=== PATIENT | female | born 1995 | race Caucasian/White ===

== ENCOUNTER 2024-11-25 15:32 | Inpatient (IN) | payer OTHER ==
[~2024-11-25] VITALS: Ht 165.1 cm; Wt 105.9 kg
[~2024-11-25 15:32] MED LIST: BIRTH CONTROL MEDS; TOPAMAX25 MG PO; ZOLOFT25 MG PO
[2024-11-25] MEDS: ONDANSETRON HCL INJ 2MG/ML 2ML 2 MG/ML VIAL IV STA (16:32)
[2024-11-25] MEDS: KETOROLAC TROMETHAMINE 30 MG/ML VIAL IV STA (16:45)
[2024-11-25] MEDS: FAMOTIDINE 20 MG/2 ML VIAL IV STA (17:05)
[2024-11-25] MEDS: Morphine 4mg INJECTION 4 MG/ML INJ IV ONE (17:05)
[2024-11-25 18:26] VITALS: PULSE 55; RESP 18; TEMP 97.6
[2024-11-25] MEDS: SODIUM CHLORIDE 0.9% 1000ML 1,000 ML IV SCH (18:34)
[2024-11-25 20:28] VITALS: BP 129/77; PULSE 57; RESP 16; TEMP 97.5; O2SAT 100
[2024-11-25] MEDS: Morphine 4mg INJECTION 4 MG/ML INJ IV PRN (21:14)
[2024-11-25 23:08] VITALS: BP 129/77; PULSE 57; RESP 16; TEMP 97.5; O2SAT 100
[2024-11-25 23:09] VITALS: BP 129/77; PULSE 57; RESP 16; TEMP 97.5; O2SAT 100
[2024-11-25 23:14] VITALS: BP 129/77; PULSE 57; RESP 16; TEMP 97.5; O2SAT 100
[2024-11-25] MEDS ORDERED: SYNTHROID125 MCG PO (23:25)
[2024-11-25] MEDS ORDERED: OMEPRAZOLE40 MG PO (23:25)
[2024-11-25] MEDS ORDERED: FAMOTIDINE20 MG PO (23:25)
[2024-11-25 23:30] VITALS: BP 129/77; PULSE 57; RESP 16; TEMP 97.5; O2SAT 100
[2024-11-26] VITALS (9 sets, daily range): BP systolic 131–161; BP diastolic 95–106; PULSE 70–125; RESP 17–20; TEMP 98.1–100.7; O2SAT 96–99
[2024-11-26 08:48] LABS: ALBUMIN 3.5 g/dL (3.5-5.0); BILIRUBIN,DIRECT 1.9 mg/dL (0.0-0.5); BILIRUBIN,TOTAL 2.5 mg/dL (0.2-1.2); TOTAL PROTEIN 9.1 g/dL (6.5-8.1)
[2024-11-26] MEDS: TRAMADOL HCL 50 MG TAB PO PRN (11:39)
[2024-11-26] MEDS: ACETAMINOPHEN 325 MG TAB PO PRN (12:53)
[2024-11-26] MEDS ORDERED: METOPROLOL TARTRATE INJ 1 MG/ML VIAL IV PRN (13:15)
[2024-11-26] MEDS ORDERED: SIMETHICONE 80 MG CHEW PO PRN (13:15)
[2024-11-26] MEDS ORDERED: ALBUTEROL/IPRATROPIUM 3 ML NEB NEB PRN (13:15)
[2024-11-26 13:34] LABS: BASOPHILS % 0.2 % (0.0-1.0); HEMOGLOBIN 13.6 g/dL (12.0-16.0); LYMPHOCYTES # (AUTO) 0.6 (1.0-3.2); LYMPHOCYTES % 3.7 % (18.0-39.1); MEAN CORPUSCULAR HEMOGLOBIN 28.2 pg (28-32); MEAN CORPUSCULAR HGB CONC 32.4 g/dL (31-35); MEAN CORPUSCULAR VOLUME 87.1 fL (81-99); MONOCYTES # (AUTO) 1.7 (0.2-0.8); MONOCYTES % 10.1 % (4.4-11.3); NEUTROPHILS # (AUTO) 13.9 (2.1-6.9); NEUTROPHILS % 85.6 % (38.7-80.0); PLATELET COUNT 380 x10e3/uL (140-360); RED BLOOD COUNT 4.82 x10e6/uL (3.6-5.1); WHITE BLOOD COUNT 16.28 x10e3/uL (4.8-10.8)
[2024-11-26 13:49] LABS: ANION GAP 11.5 mmol/L (8-16); CALCIUM 8.6 mg/dL (8.4-10.2); CHOL/HDL RATIO 3.2 (3.0-3.6); CREATININE, SERUM 0.95 mg/dL (0.57-1.11); MAGNESIUM 1.8 MG/DL (1.3-2.1); PHOSPHORUS 3.1 MG/DL (2.3-4.7); POTASSIUM 3.5 mmol/L (3.5-5.1)
[2024-11-26] MEDS: LACTATED RINGER'S 1,000 ML INJ ONE (15:33)
[2024-11-26] MEDS: ONDANSETRON HCL INJ 2MG/ML 2ML 2 MG/ML VIAL IV PRN (22:23)
[2024-11-27] VITALS (9 sets, daily range): BP systolic 117–140; BP diastolic 77–87; PULSE 92–144; RESP 17–20; TEMP 99.6–103; O2SAT 94–98
[2024-11-27 06:10] LABS: BASOPHILS % 0.2 % (0.0-1.0); EOSINOPHILS # (AUTO) 0.4 (0.0-0.4); EOSINOPHILS % 2.5 % (0.0-6.0); HEMATOCRIT 38.7 % (34.2-44.1); HEMOGLOBIN 12.4 g/dL (12.0-16.0); LYMPHOCYTES % 5.7 % (18.0-39.1); MEAN CORPUSCULAR HEMOGLOBIN 28.4 pg (28-32); MEAN CORPUSCULAR VOLUME 88.6 fL (81-99); MONOCYTES # (AUTO) 1.7 (0.2-0.8); MONOCYTES % 9.6 % (4.4-11.3); NEUTROPHILS # (AUTO) 14.2 (2.1-6.9); NEUTROPHILS % 81.4 % (38.7-80.0); PLATELET COUNT 304 x10e3/uL (140-360); RED BLOOD COUNT 4.37 x10e6/uL (3.6-5.1); RED CELL DISTRIBUTION WIDTH 15.2 % (11.7-14.4); WHITE BLOOD COUNT 17.43 x10e3/uL (4.8-10.8)
[2024-11-27 06:42] LABS: ALBUMIN 2.7 g/dL (3.5-5.0); BILIRUBIN,DIRECT 2.1 mg/dL (0.0-0.5); BILIRUBIN,TOTAL 2.9 mg/dL (0.2-1.2); TOTAL PROTEIN 7.6 g/dL (6.5-8.1)
[2024-11-27 06:59] LABS: ANION GAP 12.2 mmol/L (8-16); CALCIUM 8.2 mg/dL (8.4-10.2); CREATININE, SERUM 0.87 mg/dL (0.57-1.11)
[2024-11-27 07:02] LABS: POTASSIUM 3.2 mmol/L (3.5-5.1)
[2024-11-28] VITALS (12 sets, daily range): BP systolic 113–132; BP diastolic 70–89; PULSE 89–134; RESP 18–20; TEMP 97.5–103; O2SAT 95–100
[2024-11-28] MEDS: METOPROLOL TARTRATE INJ 1 MG/ML VIAL IV PRN (05:35)
[2024-11-28] MEDS: SODIUM CHLORIDE 0.9% 500ML 500 ML IV ONE (05:44)
[2024-11-28 06:31] LABS: BASOPHILS % 0.3 % (0.0-1.0); HEMATOCRIT 33.6 % (34.2-44.1); HEMOGLOBIN 10.6 g/dL (12.0-16.0); LYMPHOCYTES # (AUTO) 1.3 (1.0-3.2); MEAN CORPUSCULAR HEMOGLOBIN 28.1 pg (28-32); MEAN CORPUSCULAR HGB CONC 31.5 g/dL (31-35); MEAN CORPUSCULAR VOLUME 89.1 fL (81-99); MONOCYTES # (AUTO) 1.5 (0.2-0.8); MONOCYTES % 10.7 % (4.4-11.3); NEUTROPHILS # (AUTO) 11.3 (2.1-6.9); NEUTROPHILS % 79.4 % (38.7-80.0); PLATELET COUNT 251 x10e3/uL (140-360); RED BLOOD COUNT 3.77 x10e6/uL (3.6-5.1); RED CELL DISTRIBUTION WIDTH 15.1 % (11.7-14.4); WHITE BLOOD COUNT 14.29 x10e3/uL (4.8-10.8)
[2024-11-28 06:55] LABS: CREATININE, SERUM 0.87 mg/dL (0.57-1.11)
[2024-11-28 07:20] LABS: ALBUMIN 2.3 g/dL (3.5-5.0); BILIRUBIN,DIRECT 1.3 mg/dL (0.0-0.5); BILIRUBIN,TOTAL 1.9 mg/dL (0.2-1.2); TOTAL PROTEIN 7.3 g/dL (6.5-8.1)
[2024-11-28] MEDS ORDERED: SODIUM BICARBONATE 8.4% VIAL 50 ML in SODIUM CHLORIDE 0.45% 1,000 ML IV SCH (10:00)
[2024-11-28] MEDS ORDERED: PROPOFOL IV EMULSION 10 MG/ML 20 ML VIAL ONE ×3 (10:08→13:11)
[2024-11-28] MEDS ORDERED: MIDAZOLAM HCL 2 MG/2 ML VIAL ONE (10:08)
[2024-11-28] MEDS ORDERED: LIDOCAINE HCL 2% LOCAL INJ 5 ML SDV VIAL INJ ONE (10:08)
[2024-11-28] MEDS ORDERED: FENTANYL CITRATE/PF 100MCG/2 ML INJ ONE ×2 (10:08→12:36)
[2024-11-28] MEDS ORDERED: ROCURONIUM BROMIDE 1 ML IV ONE ×3 (10:08→12:00)
[2024-11-28] MEDS ORDERED: METOPROLOL TARTRATE INJ 1 MG/ML VIAL ONE (11:58)
[2024-11-28] MEDS ORDERED: ONDANSETRON HCL INJ 2MG/ML 2ML 2 MG/ML VIAL ONE ×2 (12:05→12:40)
[2024-11-28] MEDS ORDERED: METOCLOPRAMIDE HCL 10 MG/2ML VIAL ONE (12:05)
[2024-11-28] MEDS ORDERED: FAMOTIDINE 20 MG/2 ML VIAL IV ONE (12:11)
[2024-11-28] MEDS ORDERED: ACETAMINOPHEN 1000 MG/100 ML 100 ML IV ONE (12:32)
[2024-11-28] MEDS ORDERED: SUGAMMADEX SODIUM 200 MG/2 ML VIAL IV ONE (12:43)
[2024-11-28] MEDS ORDERED: KETOROLAC TROMETHAMINE 30 MG/ML VIAL ONE (12:56)
[2024-11-28] MEDS ORDERED: ACETAMINOPHEN 1000 MG/100 ML IV PRN (13:30)
[2024-11-28] MEDS: LACTATED RINGER'S 1,000 ML INJ SCH (15:26)
[2024-11-28] MEDS: HYDROMORPHONE 1MG/1ML INJ IV PRN (15:43)
[2024-11-29] VITALS (7 sets, daily range): BP systolic 121–136; BP diastolic 81–89; PULSE 53–99; RESP 18–20; TEMP 98.1–98.7; O2SAT 94–100
[2024-11-29 05:29] LABS: BASOPHILS % 0.2 % (0.0-1.0); HEMATOCRIT 31.1 % (34.2-44.1); HEMOGLOBIN 9.9 g/dL (12.0-16.0); LYMPHOCYTES # (AUTO) 0.7 (1.0-3.2); LYMPHOCYTES % 6.4 % (18.0-39.1); MEAN CORPUSCULAR HEMOGLOBIN 28.1 pg (28-32); MEAN CORPUSCULAR HGB CONC 31.8 g/dL (31-35); MEAN CORPUSCULAR VOLUME 88.4 fL (81-99); MONOCYTES # (AUTO) 0.7 (0.2-0.8); NEUTROPHILS # (AUTO) 9.9 (2.1-6.9); NEUTROPHILS % 87.1 % (38.7-80.0); PLATELET COUNT 283 x10e3/uL (140-360); RED BLOOD COUNT 3.52 x10e6/uL (3.6-5.1); RED CELL DISTRIBUTION WIDTH 15.3 % (11.7-14.4); WHITE BLOOD COUNT 11.39 x10e3/uL (4.8-10.8)
[2024-11-29 05:55] LABS: ALBUMIN 2.1 g/dL (3.5-5.0); ALBUMIN/GLOBULIN RATIO 0.4 (0.8-2.0); ANION GAP 12.3 mmol/L (8-16); CALCIUM 8.4 mg/dL (8.4-10.2); CREATININE, SERUM 0.74 mg/dL (0.57-1.11); TOTAL PROTEIN 7.3 g/dL (6.5-8.1)
[2024-11-29 06:00] LABS: POTASSIUM 3.3 mmol/L (3.5-5.1)
[2024-11-29 06:17] LABS: BILIRUBIN,DIRECT 0.6 mg/dL (0.0-0.5)
[2024-11-30 07:54] VITALS: PULSE 106; RESP 20; O2SAT 93
[2024-11-30 08:00] VITALS: BP 161/80; PULSE 104; RESP 21; TEMP 101; O2SAT 100
[2024-11-30] MEDS: ACETAMINOPHEN 325 MG TAB PO PRN (08:26)
[2024-11-30] MEDS: METOPROLOL TARTRATE 25 MG TAB PO SCH (08:27)
[2024-11-30 12:00] VITALS: BP 130/77; PULSE 97; RESP 19; TEMP 99.4; O2SAT 100
[2024-11-30] MEDS: METRONIDAZOLE 500MG/NS 100ML 100 ML IV SCH (12:56)
[2024-11-30] MEDS ORDERED: METRONIDAZOLE 500MG/NS 100ML 100 ML IV SCH (13:00)
[2024-11-30 14:09] LABS: BASOPHILS % 0.1 % (0.0-1.0); HEMATOCRIT 28.3 % (34.2-44.1); HEMOGLOBIN 9.2 g/dL (12.0-16.0); LYMPHOCYTES # (AUTO) 1.4 (1.0-3.2); LYMPHOCYTES % 9.3 % (18.0-39.1); MEAN CORPUSCULAR HGB CONC 32.5 g/dL (31-35); MEAN CORPUSCULAR VOLUME 86.3 fL (81-99); MONOCYTES # (AUTO) 1.3 (0.2-0.8); MONOCYTES % 8.2 % (4.4-11.3); NEUTROPHILS # (AUTO) 12.6 (2.1-6.9); NEUTROPHILS % 81.6 % (38.7-80.0); PLATELET COUNT 362 x10e3/uL (140-360); RED BLOOD COUNT 3.28 x10e6/uL (3.6-5.1); RED CELL DISTRIBUTION WIDTH 15.5 % (11.7-14.4); WHITE BLOOD COUNT 15.42 x10e3/uL (4.8-10.8)
[2024-11-30 14:42] LABS: ALBUMIN 1.8 g/dL (3.5-5.0); ALBUMIN/GLOBULIN RATIO 0.4 (0.8-2.0); ANION GAP 9.9 mmol/L (8-16); BILIRUBIN,TOTAL 0.9 mg/dL (0.2-1.2); CALCIUM 7.6 mg/dL (8.4-10.2); CREATININE, SERUM 0.84 mg/dL (0.57-1.11); TOTAL PROTEIN 6.2 g/dL (6.5-8.1)
[2024-11-30 15:00] LABS: POTASSIUM 2.9 mmol/L (3.5-5.1)
[2024-11-30 16:00] VITALS: BP 135/89; PULSE 97; RESP 18; TEMP 99.7; O2SAT 98
[2024-11-30] MEDS: POTASSIUM CHLORIDE 10MEQ EA PO ONE (16:08)
[2024-11-30 20:00] VITALS: BP 140/89; PULSE 108; RESP 18; TEMP 99.1; O2SAT 99
[2024-11-30 20:35] VITALS: PULSE 102; RESP 20; O2SAT 95
[2024-11-30] MEDS: HYDROMORPHONE 1MG/1ML INJ IV PRN (22:34)
[2024-12-01] VITALS (11 sets, daily range): BP systolic 127–134; BP diastolic 76–82; PULSE 91–103; RESP 18–22; TEMP 98.5–101.9; O2SAT 93–100
[2024-12-01 09:09] LABS: BASOPHILS % 0.1 % (0.0-1.0); EOSINOPHILS % 0.1 % (0.0-6.0); HEMATOCRIT 31.4 % (34.2-44.1); HEMOGLOBIN 10.1 g/dL (12.0-16.0); LYMPHOCYTES # (AUTO) 1.7 (1.0-3.2); MEAN CORPUSCULAR HGB CONC 32.2 g/dL (31-35); MONOCYTES # (AUTO) 1.2 (0.2-0.8); NEUTROPHILS # (AUTO) 13.9 (2.1-6.9); PLATELET COUNT 445 x10e3/uL (140-360); RED BLOOD COUNT 3.61 x10e6/uL (3.6-5.1); RED CELL DISTRIBUTION WIDTH 15.6 % (11.7-14.4); WHITE BLOOD COUNT 17.16 x10e3/uL (4.8-10.8)
[2024-12-01 09:56] LABS: ALBUMIN 1.9 g/dL (3.5-5.0); ALBUMIN/GLOBULIN RATIO 0.4 (0.8-2.0); ANION GAP 11.9 mmol/L (8-16); BILIRUBIN,TOTAL 1.2 mg/dL (0.2-1.2); CALCIUM 7.8 mg/dL (8.4-10.2); CREATININE, SERUM 0.7 mg/dL (0.57-1.11); TOTAL PROTEIN 6.5 g/dL (6.5-8.1)
[2024-12-01 10:00] LABS: POTASSIUM 2.9 mmol/L (3.5-5.1)
[2024-12-01] MEDS: SODIUM BICARBONATE 8.4% VIAL 50 ML in DEXTROSE 5% 1,000 ML IV SCH (11:39)
[2024-12-01] MEDS: POTASSIUM CHLORIDE 10MEQ/100ML 300 ML IV ONE (12:20)
[2024-12-01] MEDS: SODIUM CHLORIDE 0.9% 1000ML 1,000 ML ONE (20:17)
[2024-12-02] VITALS (9 sets, daily range): BP systolic 124–135; BP diastolic 72–79; PULSE 89–104; RESP 18–22; TEMP 98.7–102.4; O2SAT 96–98
[2024-12-02] MEDS ORDERED: DIATRIZOATE MEGL/DIATRIZOA SOD 30 ML BTL PO ONE (04:56)
[2024-12-02] MEDS ORDERED: IOPAMIDOL 370 MG/ML 100 ML INFUS..BTL INJ ONE (04:56)
[2024-12-02 06:23] LABS: EOSINOPHILS % 0.3 % (0.0-6.0); HEMATOCRIT 26.6 % (34.2-44.1); HEMOGLOBIN 8.6 g/dL (12.0-16.0); LYMPHOCYTES % 10.3 % (18.0-39.1); MEAN CORPUSCULAR HGB CONC 22.3 g/dL (31-35); MEAN CORPUSCULAR VOLUME 86.6 fL (81-99); MONOCYTES % 8.4 % (4.4-11.3); NEUTROPHILS % 78.5 % (38.7-80.0); PLATELET COUNT 335 x10e3/uL (140-360); RED BLOOD COUNT 3.07 x10e6/uL (3.6-5.1); RED CELL DISTRIBUTION WIDTH 15.7 % (11.7-14.4); WHITE BLOOD COUNT 15.18 x10e3/uL (4.8-10.8)
[2024-12-02 06:24] LABS: BASOPHILS # (AUTO) 0.1 (0.0-0.1); BASOPHILS % 0.1 % (0.0-1.0); EOSINOPHILS # (AUTO) 0.1 (0.0-0.4); LYMPHOCYTES # (AUTO) 1.6 (1.0-3.2); MONOCYTES # (AUTO) 1.3 (0.2-0.8); NEUTROPHILS # (AUTO) 11.9 (2.1-6.9)
[2024-12-02 06:58] LABS: ANION GAP 10.9 mmol/L (8-16); BLOOD UREA NITROGEN 7.14 mg/dL (7-26)
[2024-12-02 06:59] LABS: CALCIUM 7.2 mg/dL (8.4-10.2); CREATININE, SERUM 0.7 mg/dL (0.57-1.11)
[2024-12-02 07:01] LABS: POTASSIUM 2.9 mmol/L (3.5-5.1)
[2024-12-02 09:09] LABS: ALBUMIN 1.8 g/dL (3.5-5.0); BILIRUBIN,DIRECT 0.4 mg/dL (0.0-0.5); BILIRUBIN,TOTAL 0.7 mg/dL (0.2-1.2); TOTAL PROTEIN 6.3 g/dL (6.5-8.1)
[2024-12-02] MEDS: POTASSIUM CHLORIDE 20MEQ/100ML 100 ML IV SCH (09:12)
[2024-12-02] MEDS: SENNA-S TABLET PO SCH (17:29)
[2024-12-03] VITALS (7 sets, daily range): BP systolic 123–138; BP diastolic 72–86; PULSE 88–96; RESP 16–20; TEMP 98.4–99.2; O2SAT 96–100
[2024-12-03 08:59] LABS: BASOPHILS % 0.2 % (0.0-1.0); EOSINOPHILS # (AUTO) 0.1 (0.0-0.4); EOSINOPHILS % 0.8 % (0.0-6.0); HEMATOCRIT 24.7 % (34.2-44.1); HEMOGLOBIN 8.1 g/dL (12.0-16.0); LYMPHOCYTES # (AUTO) 1.4 (1.0-3.2); LYMPHOCYTES % 11.4 % (18.0-39.1); MEAN CORPUSCULAR HGB CONC 32.8 g/dL (31-35); MEAN CORPUSCULAR VOLUME 85.5 fL (81-99); MONOCYTES % 8.7 % (4.4-11.3); NEUTROPHILS # (AUTO) 9.2 (2.1-6.9); PLATELET COUNT 499 x10e3/uL (140-360); RED BLOOD COUNT 2.89 x10e6/uL (3.6-5.1); RED CELL DISTRIBUTION WIDTH 15.6 % (11.7-14.4); WHITE BLOOD COUNT 11.91 x10e3/uL (4.8-10.8)
[2024-12-03 09:19] LABS: ALBUMIN 1.8 g/dL (3.5-5.0); ALBUMIN/GLOBULIN RATIO 0.4 (0.8-2.0); ANION GAP 11.7 mmol/L (8-16); BILIRUBIN,TOTAL 0.7 mg/dL (0.2-1.2); CALCIUM 7.4 mg/dL (8.4-10.2); CREATININE, SERUM 0.71 mg/dL (0.57-1.11); MAGNESIUM 1.6 MG/DL (1.3-2.1); PHOSPHORUS 2.5 MG/DL (2.3-4.7); TOTAL PROTEIN 6.5 g/dL (6.5-8.1)
[2024-12-03 09:28] LABS: POTASSIUM 2.7 mmol/L (3.5-5.1)
[2024-12-03] MEDS: POTASSIUM CHLORIDE 20 MEQ TAB CR PO STA (10:25)
[2024-12-03] MEDS: POTASSIUM CHLORIDE 20MEQ/100ML 100 ML IV ONE (10:26)
[2024-12-03] MEDS ORDERED: MAGNESIUM HYDROXIDE 30 ML UDC PO PRN (12:00)
[2024-12-03] MEDS ORDERED: POTASSIUM PHOSPHATE 30 MM in SODIUM CHLORIDE 0.9% 250ML 250 ML IV ONE (12:45)
[2024-12-03] MEDS: HYDROMORPHONE 1MG/1ML INJ IV PRN (13:38)
[2024-12-03] MEDS: POTASSIUM PHOSPHATE 30 MM in SODIUM CHLORIDE 0.9% 250ML 250 ML IV ONE (14:00)
[2024-12-03] MEDS: ENOXAPARIN SOD INJ 40 MG/0.4 ML SYR SC SCH (17:33)
[2024-12-03] MEDS: MAGNESIUM SULFATE 2GM/50ML 50 ML IV ONE ×2 (18:18→18:38)
[2024-12-04] VITALS (9 sets, daily range): BP systolic 119–146; BP diastolic 69–92; PULSE 89–110; RESP 17–20; TEMP 98.5–99.9; O2SAT 95–100
[2024-12-04 06:23] LABS: BASOPHILS % 0.2 % (0.0-1.0); EOSINOPHILS # (AUTO) 0.2 (0.0-0.4); EOSINOPHILS % 1.2 % (0.0-6.0); HEMATOCRIT 25.9 % (34.2-44.1); HEMOGLOBIN 8.4 g/dL (12.0-16.0); LYMPHOCYTES # (AUTO) 1.6 (1.0-3.2); LYMPHOCYTES % 10.1 % (18.0-39.1); MEAN CORPUSCULAR HEMOGLOBIN 28.4 pg (28-32); MEAN CORPUSCULAR HGB CONC 32.4 g/dL (31-35); MEAN CORPUSCULAR VOLUME 87.5 fL (81-99); MONOCYTES % 6.6 % (4.4-11.3); NEUTROPHILS # (AUTO) 12.3 (2.1-6.9); NEUTROPHILS % 80.5 % (38.7-80.0); PLATELET COUNT 574 x10e3/uL (140-360); RED BLOOD COUNT 2.96 x10e6/uL (3.6-5.1); RED CELL DISTRIBUTION WIDTH 15.7 % (11.7-14.4); WHITE BLOOD COUNT 15.31 x10e3/uL (4.8-10.8)
[2024-12-04 06:58] LABS: ALANINE AMINOTRANSFERASE 31 IU/L (0-55); ALBUMIN 1.9 g/dL (3.5-5.0); ALBUMIN/GLOBULIN RATIO 0.4 (0.8-2.0); ALKALINE PHOSPHATASE 44 IU/L (40-150); ANION GAP 11.6 mmol/L (8-16); BILIRUBIN,TOTAL 0.6 mg/dL (0.2-1.2); BLOOD UREA NITROGEN < 5 mg/dL (7-26); CALCIUM 8.2 mg/dL (8.4-10.2); CARBON DIOXIDE 22 mmol/L (22-29); CHLORIDE 110 mmol/L (98-107); CREATININE, SERUM 0.71 mg/dL (0.57-1.11); EST GLOMERULAR FILTRATION RATE 119 ML/MIN (>=60); GLUCOSE 95 mg/dL (74-118); LIPASE 69 U/L (8-78); PHOSPHORUS 3.4 MG/DL (2.3-4.7); POTASSIUM 3.6 mmol/L (3.5-5.1); SODIUM 140 mmol/L (136-145); TOTAL PROTEIN 6.9 g/dL (6.5-8.1)
[2024-12-04 07:01] LABS: BUN/CREATININE RATIO 7 (6-25)
[2024-12-04] MEDS: HYDROCODONE/APAP 10MG-325MG TAB PO PRN (16:02)
[2024-12-05 04:37] VITALS: BP 121/76; PULSE 88; RESP 17; TEMP 98.3; O2SAT 99
[2024-12-05 04:57] LABS: BASOPHILS % 0.2 % (0.0-1.0); EOSINOPHILS # (AUTO) 0.3 (0.0-0.4); EOSINOPHILS % 2.1 % (0.0-6.0); HEMATOCRIT 25.6 % (34.2-44.1); HEMOGLOBIN 8.2 g/dL (12.0-16.0); LYMPHOCYTES # (AUTO) 1.3 (1.0-3.2); LYMPHOCYTES % 9.5 % (18.0-39.1); MEAN CORPUSCULAR HEMOGLOBIN 28.2 pg (28-32); MONOCYTES # (AUTO) 0.8 (0.2-0.8); MONOCYTES % 5.8 % (4.4-11.3); NEUTROPHILS # (AUTO) 10.9 (2.1-6.9); NEUTROPHILS % 81.1 % (38.7-80.0); PLATELET COUNT 517 x10e3/uL (140-360); RED BLOOD COUNT 2.91 x10e6/uL (3.6-5.1); RED CELL DISTRIBUTION WIDTH 15.5 % (11.7-14.4); WHITE BLOOD COUNT 13.42 x10e3/uL (4.8-10.8)
[2024-12-05 05:27] LABS: ALBUMIN/GLOBULIN RATIO 0.4 (0.8-2.0); ANION GAP 10.4 mmol/L (8-16); BILIRUBIN,TOTAL 0.6 mg/dL (0.2-1.2); CALCIUM 7.9 mg/dL (8.4-10.2); CREATININE, SERUM 0.69 mg/dL (0.57-1.11); PHOSPHORUS 3.6 MG/DL (2.3-4.7); TOTAL PROTEIN 6.8 g/dL (6.5-8.1)
[2024-12-05 05:29] LABS: POTASSIUM 3.4 mmol/L (3.5-5.1)
[2024-12-05 08:11] VITALS: BP 132/89; PULSE 88; RESP 16; TEMP 98.6; O2SAT 100
[2024-12-05] MEDS: SODIUM CHLORIDE 0.45% 1,000 ML IV SCH (09:34)
[2024-12-05] MEDS: MAGNESIUM HYDROXIDE 30 ML UDC PO PRN (09:35)
[2024-12-05 12:18] VITALS: BP 122/89; PULSE 100; RESP 17; TEMP 98.9; O2SAT 100
[2024-12-05 15:29] VITALS: BP 129/89; PULSE 86; RESP 18; TEMP 98.7; O2SAT 100
== END 2024-12-05 15:30 | disposition home or self-care (01) | DRG 417 ==
LOC: FSED 15:42 → ERHOLD 17:06 → MED/SURG3 20:16 → MED/SURG 11-28 15:53
PROVIDERS: ADMIT Internal Medicine; ATTEND Internal Medicine
PROC: 3E1M48Z Irrigation of Peritoneal Cavity using Irrigating Substance, Percutaneous Endoscopic Approach (ICD-10-PCS; 2024-11-28)
PROC: BF101ZZ Fluoroscopy of Bile Ducts using Low Osmolar Contrast (ICD-10-PCS; 2024-11-28)
PROC: 0FT44ZZ Resection of Gallbladder, Percutaneous Endoscopic Approach (ICD-10-PCS; principal; 2024-11-28 11:35)
PROC: 05HC33Z Insertion of Infusion Device into Left Basilic Vein, Percutaneous Approach (ICD-10-PCS; 2024-12-02)
DX: K80.00 Calculus of gallbladder with acute cholecystitis without obstruction (principal); K85.11 Biliary acute pancreatitis with uninfected necrosis; D62 Acute posthemorrhagic anemia; E87.6 Hypokalemia; E03.9 Hypothyroidism, unspecified; E86.0 Dehydration; K59.00 Constipation, unspecified; K76.0 Fatty (change of) liver, not elsewhere classified; E87.8 Other disorders of electrolyte and fluid balance, not elsewhere classified; R74.01 Elevation of levels of liver transaminase levels; E66.01 Morbid (severe) obesity due to excess calories; Z68.38 Body mass index [BMI] 38.0-38.9, adult; Z79.899 Other long term (current) drug therapy
CPT/HCPCS: 36415; 36568; 74177; 74181; 74300; 76700; 80048; 80053; 80061; 80076; 81003; 81025; 82150; 82248; 83690; 83735; 84100; 84132; 85025; 87040; 88304; 94799; 99284; C1766; J0692; J1171; J1650; J1885; J2003; J2250; J2270; J2405; J2470; J2543; J2765; J3475; J3480; J7030; J7050; J7070; Q9963; Q9967

== ENCOUNTER → 2025-01-03 | Outpatient (REF) | payer OTHER ==
[~2025-01-03] MED LIST changes: +FAMOTIDINE20 MG PO; +IOPAMIDOL 370 MG/ML 100 ML INFUS..BTL INJ ONE; +OMEPRAZOLE40 MG PO; +SODIUM CHLORIDE 0.9% 100 ML ONE; +SYNTHROID125 MCG PO
== END ==
LOC: CT 12:55
PROVIDERS: ATTEND Surgery
DX: K85.90 Acute pancreatitis without necrosis or infection, unspecified (principal); K86.89 Other specified diseases of pancreas
CPT/HCPCS: 74170; 81025; J7050; Q9967

== ENCOUNTER 2025-02-16 15:03 | Emergency (ER) | payer OTHER ==
[~2025-02-16] VITALS: Ht 165.1 cm; Wt 105.7 kg
[~2025-02-16 15:03] MED LIST changes: -IOPAMIDOL 370 MG/ML 100 ML INFUS..BTL INJ ONE; -SODIUM CHLORIDE 0.9% 100 ML ONE
[2025-02-16 15:20] VITALS: BP 147/109; PULSE 133; RESP 18; TEMP 100.4; O2SAT 100
[2025-02-16 15:24] VITALS: TEMP 38.00304
[2025-02-16] MEDS ORDERED: ACETAMINOPHEN 325 MG TAB PO ONE (15:30)
[2025-02-16] MEDS: SODIUM CHLORIDE 0.9% 1000ML 1,000 ML IV ONE ×3 (15:41→17:49)
[2025-02-16 15:57] LABS: BASOPHILS % 0.2 % (0.0-1.0); EOSINOPHILS # (AUTO) 0.4 (0.0-0.4); EOSINOPHILS % 4.4 % (0.0-6.0); HEMOGLOBIN 12.3 g/dL (12.0-16.0); LYMPHOCYTES % 10.8 % (18.0-39.1); MEAN CORPUSCULAR HEMOGLOBIN 28.1 pg (28-32); MEAN CORPUSCULAR HGB CONC 33.2 g/dL (31-35); MEAN CORPUSCULAR VOLUME 84.5 fL (81-99); MONOCYTES # (AUTO) 0.7 (0.2-0.8); MONOCYTES % 8.3 % (4.4-11.3); NEUTROPHILS # (AUTO) 6.7 (2.1-6.9); NEUTROPHILS % 76.2 % (38.7-80.0); PLATELET COUNT 316 x10e3/uL (140-360); RED BLOOD COUNT 4.38 x10e6/uL (3.6-5.1); RED CELL DISTRIBUTION WIDTH 15.1 % (11.7-14.4); WHITE BLOOD COUNT 8.78 x10e3/uL (4.8-10.8)
[2025-02-16] MEDS: ONDANSETRON HCL INJ 2MG/ML 2ML 2 MG/ML VIAL IV STA (16:02)
[2025-02-16 16:11] LABS: ALBUMIN 3.7 g/dL (3.5-5.0); ANION GAP 13.9 mmol/L (8-16); BILIRUBIN,TOTAL 0.5 mg/dL (0.2-1.2); CALCIUM 9.1 mg/dL (8.4-10.2); CREATININE, SERUM 0.85 mg/dL (0.57-1.11); TOTAL PROTEIN 9.3 g/dL (6.5-8.1)
[2025-02-16 16:12] LABS: ALBUMIN/GLOBULIN RATIO 0.7 (0.8-2.0)
[2025-02-16 16:15] LABS: POTASSIUM 2.9 mmol/L (3.5-5.1)
[2025-02-16 16:17] LABS: PARTIAL THROMBOPLASTIN TIME 27.6 seconds (23.8-35.5); PROTHROMBIN TIME 13.8 seconds (11.9-14.5)
[2025-02-16 16:47] LABS: BILIRUBIN,URINE NEGATIVE (NEGATIVE); CLARITY,URINE CLEAR (CLEAR); COLOR,URINE YELLOW (YELLOW); GLUCOSE, URINE NEGATIVE (NEGATIVE); KETONES,URINE NEGATIVE (NEGATIVE); LEUKOCYTE ESTERASE ,URINE NEGATIVE (NEGATIVE); NITRITE,URINE NEGATIVE (NEGATIVE); PH,URINE 6 (5 - 7); PROTEIN,URINE DIPSTICK NEGATIVE (NEGATIVE); URINE UROBILINOGEN 0.2 mg/dL (0.2 - 1)
[2025-02-16 16:54] LABS: BACTERIA,URINE MODERATE /HPF; EPITHELIAL CELLS,URINE MODERATE /LPF
[2025-02-16] MEDS ORDERED: SODIUM CHLORIDE 0.9% 1000ML 1,000 ML ONE (17:10)
[2025-02-16] MEDS: POTASSIUM CHLORIDE 20MEQ/100ML 100 ML IV SCH (17:18)
[2025-02-16] MEDS ORDERED: IOPAMIDOL 370 MG/ML 100 ML INFUS..BTL INJ ONE (17:25)
[2025-02-16] MEDS ORDERED: KETOROLAC TROMETHAMINE 30 MG/ML VIAL ONE (21:08)
[2025-02-16 22:30] VITALS: PULSE 89; RESP 17; O2SAT 100
[2025-02-16] MEDS: KETOROLAC TROMETHAMINE 30 MG/ML VIAL IV STA (22:51)
== END 2025-02-16 23:13 | disposition other institution (70) ==
LOC: ER 15:10
DX: A41.9 Sepsis, unspecified organism (principal); T85.79XA Infection and inflammatory reaction due to other internal prosthetic devices, implants and grafts, initial encounter; E03.9 Hypothyroidism, unspecified; R94.31 Abnormal electrocardiogram [ECG] [EKG]
CPT/HCPCS: 36415; 71045; 74177; 80053; 81001; 83605; 83690; 84702; 85025; 85610; 85730; 87040; 87086; 93005; 99284; J1885; J2405; J2543; J3480; J7030; Q9967

== ENCOUNTER → 2025-04-25 | Outpatient (REF) | payer OTHER | LOC: US 10:43 | PROVIDERS: ATTEND Nurse Practitioner | DX: T85.79XA Infection and inflammatory reaction due to other internal prosthetic devices, implants and grafts, initial encounter (principal) | CPT/HCPCS: 76700; 76856; 93976 ==

== ENCOUNTER → 2025-06-07 | Outpatient (REF) | payer OTHER | LOC: CT 13:10 | PROVIDERS: ATTEND Nurse Practitioner | DX: K85.91 Acute pancreatitis with uninfected necrosis, unspecified (principal) | CPT/HCPCS: 74177 ==